=== PATIENT | male | born 1950 | race Caucasian/White ===

== ENCOUNTER → 2017-02-17 | Outpatient (CLI) | payer MEDICARE, BC ==
[~2017-02-17] MED LIST: AMINOPHYLLINE 25 MG/ML, 10ML ONE; ASPI-515 PO; CANA100T PO; DIAZ10TA4 PO; DIPH25CA61 PO; FOLI-17 PO; GABA300C10 PO; GLIM4TAB PO; IPRA0.2S35; MIRT45TA6 PO; NAPR500T3 PO; OXYC-229 PO; REGADENOSON 0.4 MG/5 ML SYRINGE ONE; SITA1TAB5 PO; TRAM50TA2 PO; ZOLP10TA PO; levimer SQ
== END | disposition home or self-care (01) ==
LOC: CFH 12:00
PROVIDERS: ATTEND Internal Medicine Cardiovascular Disease
DX: R55 Syncope and collapse (principal); J44.9 Chronic obstructive pulmonary disease, unspecified
CPT/HCPCS: 78452; 93017; A9502; J0280; J2785

== ENCOUNTER → 2017-03-07 | Outpatient (CLI) | payer MEDICARE, BC ==
[~2017-03-07] MED LIST changes: -AMINOPHYLLINE 25 MG/ML, 10ML ONE; -REGADENOSON 0.4 MG/5 ML SYRINGE ONE
== END | disposition home or self-care (01) ==
LOC: RAD 12:18
PROVIDERS: ATTEND Family Medicine
DX: K76.0 Fatty (change of) liver, not elsewhere classified (principal); N28.1 Cyst of kidney, acquired; N26.1 Atrophy of kidney (terminal); J32.0 Chronic maxillary sinusitis
CPT/HCPCS: 70551; 76700

== ENCOUNTER → 2017-05-27 | Outpatient (CLI) | payer MEDICARE, BC | END | disposition home or self-care (01) | LOC: RAD 13:56 | PROVIDERS: ATTEND Family Medicine | DX: R05 Cough (principal); R63.4 Abnormal weight loss | CPT/HCPCS: 71020 ==

== ENCOUNTER 2017-07-20 15:44 | Inpatient (IN) | payer MEDICARE, BC ==
[~2017-07-20] VITALS: Ht 170.2 cm; Wt 61.1 kg
[~2017-07-20 15:44] MED LIST changes: -IPRA0.2S35; +IPRA0.2S35 INH; -OXYC-229 PO; +OXYC-307 PO
[2017-07-20] MEDS ORDERED: ASPIRIN 81 MG TABLET CHEW PO ONE (16:00)
[2017-07-20] MEDS ORDERED: SODIUM CHLORIDE FLUSH 10ML SYR IVF ONE ×2 (16:00→17:30)
[2017-07-20] MEDS ORDERED: MORPHINE SULFATE 4 MG/ML, 1ML IVPush PRN (16:00)
[2017-07-20] MEDS ORDERED: ONDANSETRON 2MG/ML, 2ML IVPush ONE (16:00)
[2017-07-20] MEDS ORDERED: ONDANSETRON 2MG/ML, 2ML ONE (16:45)
[2017-07-20] MEDS ORDERED: ASPIRIN 81 MG TABLET CHEW ONE (16:46)
[2017-07-20 16:54] LABS: HEMATOCRIT 42.7 % (39.2-51.8); HEMOGLOBIN 13.9 g/dL (13.7-18.0)
[2017-07-20 17:04] LABS: BLOOD UREA NITROGEN 7 mg/dL (7-18)
[2017-07-20] MEDS ORDERED: KETOROLAC 30 MG/1 ML ONE (17:04)
[2017-07-20] MEDS ORDERED: METOCLOPRAMIDE 5 MG/ML, 2ML ONE (17:04)
[2017-07-20] MEDS ORDERED: DIPHENHYDRAMINE 50 MG/ML, 1ML ONE (17:04)
[2017-07-20 17:11] LABS: IS PT STATUS REG ER OR PRE ER? YES
[2017-07-20] MEDS ORDERED: DIPHENHYDRAMINE 50 MG/ML, 1ML IVPush ONE (17:30)
[2017-07-20] MEDS ORDERED: METOCLOPRAMIDE 5 MG/ML, 2ML IVPush ONE (17:30)
[2017-07-20] MEDS ORDERED: SODIUM CHLORIDE 0.9% 1,000ML IVBOLUS ONE (17:30)
[2017-07-20] MEDS ORDERED: KETOROLAC 30 MG/1 ML IVPush ONE (17:30)
[2017-07-20] MEDS ORDERED: HYDROmorphone 2 MG/ML, 1ML IVPush PRN (20:00)
[2017-07-20] MEDS ORDERED: OMNIPAQUE 350 MG/ML, 100ML BOTTLE ONE (20:55)
[2017-07-20] MEDS ORDERED: HYDROmorphone 1 MG/ML, 1ML ONE (21:24)
[2017-07-20] MEDS ORDERED: POLYETHYLENE GLYCOL 17 GM PACKET PO PRN (23:00)
[2017-07-20] MEDS ORDERED: INSULIN DETEMIR 100 UNITS/ML, PEN SQ-INSULIN SCH (23:00)
[2017-07-20] MEDS ORDERED: ZOLPIDEM 10MG TABLET PO SCH (23:00)
[2017-07-20] MEDS ORDERED: ONDANSETRON 2MG/ML, 2ML IVPush PRN (23:00)
[2017-07-20] MEDS ORDERED: MIRTAZAPINE 15 MG TABLET PO SCH (23:00)
[2017-07-20] MEDS ORDERED: OXYcodone/APAP 10/325MG TABLET PO PRN (23:00)
[2017-07-20] MEDS ORDERED: BUTALB/APAP/CAFFEINE 50MG/325MG/40MG PO PRN (23:00)
[2017-07-20] MEDS ORDERED: BISACODYL 10 MG SUPP PR PRN (23:00)
[2017-07-21] MEDS: METHOCARBAMOL 500 MG TABLET PO SCH ×3 (00:11→11:16)
[2017-07-21] MEDS: SODIUM CHLORIDE FLUSH 10ML SYR IVF SCH ×2 (00:12→08:37)
[2017-07-21 02:30] VITALS: BP 101/62
[2017-07-21 04:41] LABS: HEMATOCRIT 39.4 % (39.2-51.8); HEMOGLOBIN 12.9 g/dL (13.7-18.0); WHITE BLOOD COUNT 5.2 x10^3/uL (3.4-10)
[2017-07-21 04:49] LABS: ASPARTATE AMINO TRANSFERASE 8 U/L (15-37); BLOOD UREA NITROGEN 10 mg/dL (7-18)
[2017-07-21] MEDS ORDERED: metFORMIN XR 500 MG TAB.ER.24H PO SCH (08:00)
[2017-07-21 08:30] VITALS: BP 95/60
[2017-07-21] MEDS ORDERED: GABAPENTIN 300 MG CAPSULE PO SCH (09:00)
[2017-07-21] MEDS ORDERED: GLIMEPIRIDE 4 MG TABLET PO SCH (09:00)
[2017-07-21] MEDS ORDERED: CANAGLIFLOZIN HOMEMEDPO SCH (09:00)
[2017-07-21] MEDS ORDERED: SITAGLIPTIN 50MG TABLET PO SCH (09:00)
[2017-07-21] MEDS ORDERED: SENNA/DOCUSATE TABLET PO SCH (09:00)
[2017-07-21] MEDS ORDERED: ASPIRIN 81 MG TABLET EC PO SCH (09:00)
[2017-07-21 14:00] VITALS: BP 101/67
== END 2017-07-21 14:55 | disposition home or self-care (01) | DRG 102 ==
LOC: ED 21:42 → EDIP 21:43 → ED 22:04 → 4NOR 23:38 → DCLOUNGE 07-21 14:42
PROVIDERS: ADMIT Hospitalist; ATTEND Hospitalist
DX: G43.901 Migraine, unspecified, not intractable, with status migrainosus (principal); G93.40 Encephalopathy, unspecified; E11.40 Type 2 diabetes mellitus with diabetic neuropathy, unspecified; F32.9 Major depressive disorder, single episode, unspecified; F41.9 Anxiety disorder, unspecified; E78.5 Hyperlipidemia, unspecified; G89.29 Other chronic pain; M50.30 Other cervical disc degeneration, unspecified cervical region; Z87.891 Personal history of nicotine dependence; Z79.4 Long term (current) use of insulin
CPT/HCPCS: 36415; 70450; 70496; 71020; 80048; 80053; 80061; 82040; 82962; 83036; 83880; 84484; 85025; 87324; 93005; 96374; 96375; J1170; J1885; J2405; Q9967; J1200; J1815; J2765; J7030

== ENCOUNTER 2017-07-27 11:01 | Inpatient (IN) | payer MEDICARE, BC ==
[~2017-07-27] VITALS: Ht 170.2 cm; Wt 65.1 kg
[2017-07-27] MEDS ORDERED: ONDANSETRON ODT 4 MG PO ONE (11:30)
[2017-07-27] MEDS ORDERED: MECLIZINE CHEWABLE 25 MG TAB PO ONE (11:30)
[2017-07-27] MEDS ORDERED: MECLIZINE CHEWABLE 25 MG TAB ONE (11:39)
[2017-07-27] MEDS ORDERED: ONDANSETRON ODT 4 MG ONE (11:39)
[2017-07-27] MEDS ORDERED: LORazepam 2 MG/ML, 1ML ONE (12:06)
[2017-07-27] MEDS ORDERED: SODIUM CHLORIDE 0.9% 1,000 ML IV ONE ×2 (12:06)
[2017-07-27] MEDS ORDERED: ONDANSETRON 2MG/ML, 2ML ONE (12:22)
[2017-07-27 12:30] LABS: HEMATOCRIT 45.4 % (39.2-51.8); HEMOGLOBIN 15.1 g/dL (13.7-18.0); WHITE BLOOD COUNT 11.4 x10^3/uL (3.4-10)
[2017-07-27] MEDS ORDERED: LORazepam 2 MG/ML, 1ML IVPush ONE (12:30)
[2017-07-27] MEDS ORDERED: SODIUM CHLORIDE FLUSH 10ML SYR IVF ONE (12:30)
[2017-07-27 12:40] LABS: ASPARTATE AMINO TRANSFERASE 12 U/L (15-37); BLOOD UREA NITROGEN 11 mg/dL (7-18)
[2017-07-27 12:45] LABS: IS PT STATUS REG ER OR PRE ER? YES
[2017-07-27] MEDS ORDERED: PROMETHAZINE 25 MG/ML, 1ML ONE (12:51)
[2017-07-27] MEDS ORDERED: PROMETHAZINE 25 MG/ML, 1ML IM ONE (13:00)
[2017-07-27] MEDS ORDERED: ONDANSETRON 2MG/ML, 2ML IVPush ONE (13:00)
[2017-07-27] MEDS ORDERED: DIAZEPAM 5 MG/ML, 2ML IV ONE (13:30)
[2017-07-27] MEDS ORDERED: DOCUSATE 100 MG CAPSULE PO PRN (14:00)
[2017-07-27] MEDS ORDERED: ENALAPRILAT 1.25 MG/ML, 2ML IVPush PRN (14:00)
[2017-07-27] MEDS ORDERED: LORazepam 1MG TABLET PO PRN (14:00)
[2017-07-27] MEDS ORDERED: ACETAMINOPHEN 325 MG TABLET PO PRN (14:00)
[2017-07-27] MEDS ORDERED: PROMETHAZINE 25 MG/ML, 1ML IM PRN (14:00)
[2017-07-27] MEDS ORDERED: MECLIZINE CHEWABLE 25 MG TAB PO PRN (14:00)
[2017-07-27] MEDS ORDERED: SODIUM CHLORIDE NASAL SPRAY 45ML BOTTLE NAS PRN (14:00)
[2017-07-27] MEDS ORDERED: ONDANSETRON 2MG/ML, 2ML IVPush PRN (14:00)
[2017-07-27] MEDS ORDERED: BISACODYL 10 MG SUPP PR PRN (14:00)
[2017-07-27] MEDS ORDERED: INSULIN ASPART 100 UNITS/ML, PEN SQ-INSULIN SCH ×2 (15:00→16:00)
[2017-07-27] MEDS ORDERED: DIAZEPAM 5 MG TABLET ONE ×2 (15:34→20:59)
[2017-07-27] MEDS: D5%-0.45NACL+KCL 20MEQ 1,000 ML IV SCH (16:17)
[2017-07-27] MEDS: AMPICILLIN/SULBACTAM 1,500 MG in SODIUM CHLORIDE 0.9% 50 ML IV SCH ×2 (16:17→21:11)
[2017-07-27] MEDS: ENOXAPARIN 40 MG/0.4 ML SQ SCH (16:17)
[2017-07-27 16:20] VITALS: BP 112/61
[2017-07-27] MEDS: DIAZEPAM 10 MG TABLET PO SCH ×2 (16:23→21:00)
[2017-07-27] MEDS: metFORMIN 500 MG TABLET PO SCH (16:40)
[2017-07-27 17:45] LABS: DAU SCREEN DISCLAIMER
[2017-07-27 20:02] VITALS: BP 110/71
[2017-07-27] MEDS ORDERED: MIRTAZAPINE 45 MG PO SCH (21:00)
[2017-07-27] MEDS: ZOLPIDEM 10MG TABLET PO SCH (21:07)
[2017-07-27] MEDS: INSULIN ASPART 100 UNITS/ML, PEN SQ-INSULIN SCH (22:14)
[2017-07-28 01:47] VITALS: BP 102/69
[2017-07-28] MEDS: D5%-0.45NACL+KCL 20MEQ 1,000 ML IV SCH ×2 (02:03→16:36)
[2017-07-28] MEDS: AMPICILLIN/SULBACTAM 1,500 MG in SODIUM CHLORIDE 0.9% 50 ML IV SCH ×4 (03:22→22:38)
[2017-07-28 05:42] LABS: HEMATOCRIT 39.4 % (39.2-51.8); HEMOGLOBIN 13.2 g/dL (13.7-18.0); WHITE BLOOD COUNT 5.9 x10^3/uL (3.4-10)
[2017-07-28 06:12] LABS: BLOOD UREA NITROGEN 11 mg/dL (7-18)
[2017-07-28] MEDS: INSULIN ASPART 100 UNITS/ML, PEN SQ-INSULIN SCH ×4 (07:00→21:00)
[2017-07-28] MEDS: PANTOPRAZOLE 40 MG IV IVPush SCH (07:23)
[2017-07-28] MEDS: metFORMIN 500 MG TABLET PO SCH ×2 (07:26→14:47)
[2017-07-28 07:28] VITALS: BP 96/56
[2017-07-28] MEDS: DIAZEPAM 10 MG TABLET PO SCH ×3 (09:00→21:00)
[2017-07-28] MEDS ORDERED: DIAZEPAM 5 MG TABLET ONE ×3 (09:04→20:52)
[2017-07-28] MEDS: ASPIRIN 81 MG TABLET EC PO SCH (09:14)
[2017-07-28] MEDS: SITAGLIPTIN 50MG TABLET PO SCH (09:14)
[2017-07-28] MEDS: GLIMEPIRIDE 4 MG TABLET PO SCH (09:14)
[2017-07-28] MEDS: GABAPENTIN 300 MG CAPSULE PO SCH (09:14)
[2017-07-28 09:15] VITALS: BP 113/78
[2017-07-28] MEDS ORDERED: GADOBUTROL 7.5 MMOL/7.5 ML PFS ONE (13:05)
[2017-07-28] MEDS: ENOXAPARIN 40 MG/0.4 ML SQ SCH (16:36)
[2017-07-28 16:44] VITALS: BP 113/70
[2017-07-28 19:50] VITALS: BP 104/71
[2017-07-28] MEDS: ZOLPIDEM 10MG TABLET PO SCH (21:00)
[2017-07-28] MEDS: MIRTAZAPINE 15 MG TABLET PO SCH (21:02)
[2017-07-29] MEDS: D5%-0.45NACL+KCL 20MEQ 1,000 ML IV SCH (03:50)
[2017-07-29] MEDS: AMPICILLIN/SULBACTAM 1,500 MG in SODIUM CHLORIDE 0.9% 50 ML IV SCH ×3 (04:40→16:05)
[2017-07-29 04:52] VITALS: BP 106/75
[2017-07-29 07:04] VITALS: BP 106/66
[2017-07-29] MEDS: INSULIN ASPART 100 UNITS/ML, PEN SQ-INSULIN SCH ×4 (07:54→20:53)
[2017-07-29] MEDS: PANTOPRAZOLE 40 MG IV IVPush SCH (07:55)
[2017-07-29] MEDS: metFORMIN 500 MG TABLET PO SCH ×2 (07:55→16:06)
[2017-07-29] MEDS: GABAPENTIN 300 MG CAPSULE PO SCH (07:56)
[2017-07-29] MEDS: SITAGLIPTIN 50MG TABLET PO SCH (07:56)
[2017-07-29] MEDS: ASPIRIN 81 MG TABLET EC PO SCH (07:56)
[2017-07-29] MEDS ORDERED: DIAZEPAM 5 MG TABLET ONE (07:58)
[2017-07-29] MEDS: DIAZEPAM 10 MG TABLET PO SCH (08:00)
[2017-07-29] MEDS: GLIMEPIRIDE 4 MG TABLET PO SCH (08:00)
[2017-07-29 12:05] VITALS: BP 111/71
[2017-07-29] MEDS ORDERED: D5%-0.45NACL+KCL 20MEQ 1,000 ML IV SCH (13:30)
[2017-07-29] MEDS: ENOXAPARIN 40 MG/0.4 ML SQ SCH (16:05)
[2017-07-29 19:51] VITALS: BP 117/79
[2017-07-29] MEDS: MIRTAZAPINE 15 MG TABLET PO SCH (20:52)
== END 2017-07-29 22:05 | disposition left against medical advice (07) | DRG 74 ==
LOC: ED 12:24 → EDIP 13:38 → 3NE 14:36
PROVIDERS: ADMIT Internal Medicine; ATTEND Internal Medicine
DX: E11.40 Type 2 diabetes mellitus with diabetic neuropathy, unspecified (principal); E11.65 Type 2 diabetes mellitus with hyperglycemia; E44.1 Mild protein-calorie malnutrition; R42 Dizziness and giddiness; K31.84 Gastroparesis; E11.43 Type 2 diabetes mellitus with diabetic autonomic (poly)neuropathy; Z53.21 Procedure and treatment not carried out due to patient leaving prior to being seen by health care provider; D72.829 Elevated white blood cell count, unspecified; E78.5 Hyperlipidemia, unspecified; G89.29 Other chronic pain; I65.29 Occlusion and stenosis of unspecified carotid artery; Z79.4 Long term (current) use of insulin; Z79.82 Long term (current) use of aspirin; Z79.899 Other long term (current) drug therapy; Z87.820 Personal history of traumatic brain injury; Z87.891 Personal history of nicotine dependence; Z88.6 Allergy status to analgesic agent; H83.09 Labyrinthitis, unspecified ear; J32.9 Chronic sinusitis, unspecified
CPT/HCPCS: 36415; 70544; 70553; 71010; 80048; 80053; 80307; 81003; 82010; 82140; 82800; 82962; 83735; 84100; 84484; 85025; 93005; 96361; 96372; 96374; 96375; A9585; J1650; J1815; J2405; J2550; J3360; Q0162; C9113; G0479; J0295; J3480; J7030

== ENCOUNTER 2017-07-30 00:42 | Inpatient (IN) | payer MEDICARE, BC ==
[~2017-07-30] VITALS: Ht 170.2 cm; Wt 63.5 kg
[2017-07-30] MEDS ORDERED: SODIUM CHLORIDE FLUSH 10ML SYR IVF ONE (01:30)
[2017-07-30 01:33] LABS: HEMATOCRIT 43.8 % (39.2-51.8); HEMOGLOBIN 14.6 g/dL (13.7-18.0); WHITE BLOOD COUNT 8.3 x10^3/uL (3.4-10)
[2017-07-30 01:36] LABS: BLOOD UREA NITROGEN 11 mg/dL (7-18)
[2017-07-30] MEDS ORDERED: POLYETHYLENE GLYCOL 17 GM PACKET PO PRN (03:00)
[2017-07-30] MEDS ORDERED: ENALAPRILAT 1.25 MG/ML, 2ML IVPush PRN (03:00)
[2017-07-30] MEDS ORDERED: OXYcodone IR 5MG TABLET PO PRN (03:00)
[2017-07-30] MEDS ORDERED: ACETAMINOPHEN 325 MG TABLET PO PRN (03:00)
[2017-07-30] MEDS ORDERED: BISACODYL 10 MG SUPP PR PRN (03:00)
[2017-07-30] MEDS ORDERED: DOCUSATE 100 MG CAPSULE PO PRN (03:00)
[2017-07-30] MEDS ORDERED: hydrALAzine 20 MG/ML, 1ML IVPush PRN (03:00)
[2017-07-30] MEDS ORDERED: morphine SULFATE 10 MG/ML, 1ML IVPush PRN (03:00)
[2017-07-30 03:10] VITALS: BP 123/89
[2017-07-30] MEDS: HEPARIN 5,000 UNITS/ML, 1ML SQ SCH ×3 (03:42→21:32)
[2017-07-30] MEDS: SODIUM CHLORIDE 0.9% 1,000 ML IV SCH ×2 (03:42→12:31)
[2017-07-30] MEDS ORDERED: ALBUTEROL/IPRATROPIUM 2.5MG/0.5MG, 3 ML NPPB PRN (04:00)
[2017-07-30 08:20] VITALS: BP 116/70
[2017-07-30] MEDS ORDERED: DIAZEPAM 5 MG TABLET PO SCH (09:00)
[2017-07-30] MEDS: SITAGLIPTIN 50MG TABLET PO SCH (09:04)
[2017-07-30] MEDS: ASPIRIN 81 MG TABLET EC PO SCH (09:05)
[2017-07-30] MEDS: GABAPENTIN 300 MG CAPSULE PO SCH ×3 (09:05→21:33)
[2017-07-30] MEDS: GLIMEPIRIDE 4 MG TABLET PO SCH (09:05)
[2017-07-30] MEDS: metFORMIN 500 MG TABLET PO SCH (09:05)
[2017-07-30] MEDS ORDERED: SODIUM CHLORIDE NASAL SPRAY 45ML BOTTLE NAS PRN (14:30)
[2017-07-30 15:03] VITALS: BP 104/61
[2017-07-30] MEDS: MECLIZINE CHEWABLE 25 MG TAB PO SCH ×2 (16:45→21:33)
[2017-07-30] MEDS: IBUPROFEN 200 MG TABLET PO PRN (16:45)
[2017-07-30 19:45] VITALS: BP 98/57
[2017-07-30] MEDS: ZOLPIDEM 10MG TABLET PO SCH (21:32)
[2017-07-30] MEDS: AMOXICILLIN/CLAV 875-125MG TABLET PO SCH (21:33)
[2017-07-30] MEDS: INSULIN DETEMIR 100 UNITS/ML, PEN SQ-INSULIN SCH (21:34)
[2017-07-30] MEDS: MIRTAZAPINE 15 MG TABLET PO SCH (21:35)
[2017-07-31 01:57] VITALS: BP 120/80
[2017-07-31] MEDS: HEPARIN 5,000 UNITS/ML, 1ML SQ SCH ×3 (03:15→18:33)
[2017-07-31 05:40] LABS: HEMATOCRIT 44.3 % (39.2-51.8); WHITE BLOOD COUNT 5.1 x10^3/uL (3.4-10)
[2017-07-31 05:55] LABS: ASPARTATE AMINO TRANSFERASE 21 U/L (15-37); BLOOD UREA NITROGEN 13 mg/dL (7-18)
[2017-07-31] MEDS: AMOXICILLIN/CLAV 875-125MG TABLET PO SCH ×2 (10:09→21:57)
[2017-07-31] MEDS: GABAPENTIN 300 MG CAPSULE PO SCH ×3 (10:09→22:24)
[2017-07-31] MEDS: GLIMEPIRIDE 4 MG TABLET PO SCH (10:09)
[2017-07-31] MEDS: ASPIRIN 81 MG TABLET EC PO SCH (10:09)
[2017-07-31] MEDS: SITAGLIPTIN 50MG TABLET PO SCH (10:10)
[2017-07-31] MEDS: MECLIZINE CHEWABLE 25 MG TAB PO SCH ×3 (10:10→21:57)
[2017-07-31] MEDS: metFORMIN 500 MG TABLET PO SCH (10:10)
[2017-07-31 12:34] VITALS: BP 129/88
[2017-07-31] MEDS: OXYcodone/APAP 10/325MG TABLET PO SCH (18:36)
[2017-07-31 20:37] VITALS: BP 95/60
[2017-07-31] MEDS: ZOLPIDEM 10MG TABLET PO SCH (21:57)
[2017-07-31] MEDS: INSULIN DETEMIR 100 UNITS/ML, PEN SQ-INSULIN SCH (21:58)
[2017-07-31] MEDS: MIRTAZAPINE 15 MG TABLET PO SCH (21:58)
[2017-07-31] MEDS: IBUPROFEN 200 MG TABLET PO PRN (22:24)
[2017-08-01 00:58] VITALS: BP 105/71
[2017-08-01] MEDS: HEPARIN 5,000 UNITS/ML, 1ML SQ SCH ×3 (03:04→20:04)
[2017-08-01] MEDS: OXYcodone/APAP 10/325MG TABLET PO SCH (03:04)
[2017-08-01 07:20] VITALS: BP 103/68
[2017-08-01] MEDS: SITAGLIPTIN 50MG TABLET PO SCH (09:07)
[2017-08-01] MEDS: GLIMEPIRIDE 4 MG TABLET PO SCH (09:08)
[2017-08-01] MEDS: ASPIRIN 81 MG TABLET EC PO SCH (09:08)
[2017-08-01] MEDS: AMOXICILLIN/CLAV 875-125MG TABLET PO SCH ×2 (09:08→20:04)
[2017-08-01] MEDS: MECLIZINE CHEWABLE 25 MG TAB PO SCH ×3 (09:08→20:04)
[2017-08-01] MEDS: GABAPENTIN 300 MG CAPSULE PO SCH ×3 (09:08→20:04)
[2017-08-01] MEDS: metFORMIN 500 MG TABLET PO SCH (09:08)
[2017-08-01] MEDS: OXYcodone/APAP 10/325MG TABLET PO PRN ×2 (09:15→16:35)
[2017-08-01 12:01] VITALS: BP 154/90
[2017-08-01] MEDS: ONDANSETRON 2MG/ML, 2ML IVPush PRN (12:45)
[2017-08-01 13:24] LABS: IS PT STATUS REG ER OR PRE ER? NO
[2017-08-01] MEDS ORDERED: LORazepam 0.5MG TABLET PO PRN (13:30)
[2017-08-01] MEDS ORDERED: METOCLOPRAMIDE 5 MG/ML, 2ML IVPush PRN (13:30)
[2017-08-01 13:58] VITALS: BP 146/82
[2017-08-01 18:25] LABS: IS PT STATUS REG ER OR PRE ER? NO
[2017-08-01] MEDS: ZOLPIDEM 10MG TABLET PO SCH (20:04)
[2017-08-01] MEDS: MIRTAZAPINE 15 MG TABLET PO SCH (20:04)
[2017-08-01] MEDS: INSULIN DETEMIR 100 UNITS/ML, PEN SQ-INSULIN SCH (20:05)
[2017-08-01 21:36] VITALS: BP 120/73
[2017-08-02] MEDS: ONDANSETRON 2MG/ML, 2ML IVPush PRN ×2 (01:16→14:30)
[2017-08-02 02:00] VITALS: BP 132/62
[2017-08-02] MEDS: HEPARIN 5,000 UNITS/ML, 1ML SQ SCH ×3 (03:00→19:00)
[2017-08-02 05:01] LABS: HEMATOCRIT 47.1 % (39.2-51.8); HEMOGLOBIN 15.9 g/dL (13.7-18.0); WHITE BLOOD COUNT 6.5 x10^3/uL (3.4-10)
[2017-08-02 05:20] LABS: BLOOD UREA NITROGEN 13 mg/dL (7-18)
[2017-08-02 06:56] VITALS: BP 120/85
[2017-08-02] MEDS: metFORMIN 500 MG TABLET PO SCH (09:23)
[2017-08-02] MEDS: AMOXICILLIN/CLAV 875-125MG TABLET PO SCH ×2 (09:23→21:11)
[2017-08-02] MEDS: ASPIRIN 81 MG TABLET EC PO SCH (09:23)
[2017-08-02] MEDS: SITAGLIPTIN 50MG TABLET PO SCH (09:23)
[2017-08-02] MEDS: GABAPENTIN 300 MG CAPSULE PO SCH ×3 (09:23→21:11)
[2017-08-02] MEDS: GLIMEPIRIDE 4 MG TABLET PO SCH (09:23)
[2017-08-02] MEDS: MECLIZINE CHEWABLE 25 MG TAB PO SCH ×3 (09:23→21:11)
[2017-08-02] MEDS ORDERED: METOCLOPRAMIDE 10MG TABLET PO PRN (11:30)
[2017-08-02 13:41] VITALS: BP 111/71
[2017-08-02] MEDS: OXYcodone/APAP 10/325MG TABLET PO PRN (14:17)
[2017-08-02 19:42] VITALS: BP 125/82
[2017-08-02] MEDS: ZOLPIDEM 10MG TABLET PO SCH (21:00)
[2017-08-02] MEDS: INSULIN DETEMIR 100 UNITS/ML, PEN SQ-INSULIN SCH (21:11)
[2017-08-02] MEDS: MIRTAZAPINE 15 MG TABLET PO SCH (21:11)
[2017-08-03] MEDS: HEPARIN 5,000 UNITS/ML, 1ML SQ SCH ×3 (03:00→18:14)
[2017-08-03 05:17] VITALS: BP 110/75
[2017-08-03 07:12] VITALS: BP 109/48
[2017-08-03] MEDS: SITAGLIPTIN 50MG TABLET PO SCH (09:33)
[2017-08-03] MEDS: ASPIRIN 81 MG TABLET EC PO SCH (09:33)
[2017-08-03] MEDS: MECLIZINE CHEWABLE 25 MG TAB PO SCH ×2 (09:33→17:27)
[2017-08-03] MEDS: metFORMIN 500 MG TABLET PO SCH (09:33)
[2017-08-03] MEDS: AMOXICILLIN/CLAV 875-125MG TABLET PO SCH (09:33)
[2017-08-03] MEDS: GLIMEPIRIDE 4 MG TABLET PO SCH (09:33)
[2017-08-03] MEDS: GABAPENTIN 300 MG CAPSULE PO SCH ×2 (09:33→17:27)
[2017-08-03 10:09] VITALS: BP_SYST 113; BP_SYST 114; BP_SYST 118; BP_DIAS 70; BP_DIAS 72
[2017-08-03] MEDS: ONDANSETRON 2MG/ML, 2ML IVPush PRN (11:05)
[2017-08-03] MEDS ORDERED: BISACODYL 5 MG EC TABLET PO ONE (13:00)
[2017-08-03 14:22] VITALS: BP 111/74
[2017-08-03] MEDS ORDERED: AMOX1TAB12 PO (14:26)
[2017-08-03] MEDS ORDERED: METO10TA2 PO (14:26)
[2017-08-03] MEDS ORDERED: MECL-85 PO (14:26)
== END 2017-08-03 20:21 | DRG 312 ==
LOC: ED 02:06 → EDIP 02:10 → 4WST 03:08
PROVIDERS: ADMIT Internal Medicine; ATTEND Internal Medicine
DX: R55 Syncope and collapse (principal); E11.40 Type 2 diabetes mellitus with diabetic neuropathy, unspecified; F32.9 Major depressive disorder, single episode, unspecified; F41.9 Anxiety disorder, unspecified; G89.29 Other chronic pain; M54.9 Dorsalgia, unspecified; G43.909 Migraine, unspecified, not intractable, without status migrainosus; E78.5 Hyperlipidemia, unspecified; I65.29 Occlusion and stenosis of unspecified carotid artery; R42 Dizziness and giddiness; Z79.4 Long term (current) use of insulin; Z87.891 Personal history of nicotine dependence; Z88.5 Allergy status to narcotic agent; Z91.19 Patient's noncompliance with other medical treatment and regimen; R07.9 Chest pain, unspecified
CPT/HCPCS: 36415; 70450; 80048; 80053; 81003; 82040; 82962; 83036; 83735; 84439; 84443; 84484; 85025; 93005; 93306; 93880; 99285; J1644; J2405; J1815; J2765; J7030

== ENCOUNTER 2018-01-27 15:48 | Inpatient (IN) | payer MEDICARE, BC ==
[~2018-01-27] VITALS: Ht 170.2 cm; Wt 69.9 kg
[~2018-01-27 15:48] MED LIST changes: +AMOX1TAB12 PO; +MECL-85 PO; +METO10TA2 PO; +NAPR-685 PO; -NAPR500T3 PO
[2018-01-27 16:39] LABS: BASOPHILS # (AUTO) 0.03 x10^3/uL (0-0.1); BASOPHILS % (AUTO) 0 % (0-1); EOSINOPHILS # (AUTO) 0.07 x10^3/uL (0-0.4); EOSINOPHILS % (AUTO) 1 % (1-7); LYMPHOCYTES # (AUTO) 1.75 x10^3/uL (1-3.4); LYMPHOCYTES % (AUTO) 20 % (22-44); MD NO; MEAN CORPUSCULAR HEMOGLOBIN 30.2 pg (27.5-34.5); MEAN CORPUSCULAR VOLUME 91.7 fL (81-97); MEAN PLATELET VOLUME 7.3 fL (7.4-10.4); MONOCYTES # (AUTO) 0.48 x10^3/uL (0.2-0.8); MONOCYTES % (AUTO) 6 % (2-9); NEUTROPHILS # (AUTO) 6.21 x10^3/uL (1.8-6.8); NEUTROPHILS % (AUTO) 73 % (42-75); PLATELET COUNT 260 x10^3/uL (130-400); RED BLOOD COUNT 5.28 x10^6/uL (4.38-5.82); RED CELL DISTRIBUTION WIDTH 15.4 % (9.4-14.8)
[2018-01-27 16:50] LABS: ALANINE AMINOTRANSFERASE 23 U/L (12-78); ALBUMIN 3.9 g/dL (3.4-5.0); ANION GAP 4 mmol/L (5-15); CALCIUM 9.7 mg/dL (8.5-10.1); CHLORIDE 106 mmol/L (98-107); CREATININE 1.15 mg/dL (0.7-1.3)
[2018-01-27 16:53] LABS: ALKALINE PHOSPHATASE 80 U/L (45-117); BILIRUBIN,TOTAL 0.3 mg/dL (0.2-1.0); TOTAL PROTEIN 7.7 g/dL (6.4-8.2)
[2018-01-27 17:10] LABS: ACETONE, SERUM Negative (Negative)
[2018-01-27] MEDS ORDERED: SODIUM CHLORIDE 0.9% 1,000 ML IV ONE (17:20)
[2018-01-27] MEDS ORDERED: OMEP-110 PO (17:24)
[2018-01-27] MEDS ORDERED: TRAM50TA2 PO (17:24)
[2018-01-27] MEDS ORDERED: FOLI0.4T2 PO (17:24)
[2018-01-27] MEDS ORDERED: INSU100V8 SQ (17:24)
[2018-01-27] MEDS ORDERED: TIOT18CA INH (17:24)
[2018-01-27] MEDS ORDERED: BUDE10.22 INH (17:24)
[2018-01-27] MEDS ORDERED: PRAV10TA2 PO (17:24)
[2018-01-27] MEDS ORDERED: SERT50TA5 PO (17:24)
[2018-01-27] MEDS ORDERED: SODIUM CHLORIDE FLUSH 10ML SYR IVF ONE (17:30)
[2018-01-27 18:05] LABS: THYROID STIMULATING HORMONE 2.06 mIU/L (0.358-3.740)
[2018-01-27 18:34] VITALS: BP 142/91
[2018-01-27 19:30] VITALS: BP 142/91
[2018-01-27] MEDS ORDERED: ONDANSETRON 2MG/ML, 2ML IVPush PRN (19:30)
[2018-01-27] MEDS: INSULIN GLARGINE 100 UNITS/ML, PEN SQ-INSULIN SCH ×2 (19:30→22:21)
[2018-01-27] MEDS ORDERED: BISACODYL 10 MG SUPP PR PRN (19:30)
[2018-01-27] MEDS ORDERED: POLYETHYLENE GLYCOL 17 GM PACKET PO PRN (19:30)
[2018-01-27] MEDS ORDERED: KETOROLAC 30 MG/1 ML IVPush PRN (19:30)
[2018-01-27] MEDS ORDERED: ACETAMINOPHEN 325 MG TABLET PO PRN (19:30)
[2018-01-27 20:21] LABS: HEMOGLOBIN A1C 8.9 % (4.2-6.3)
[2018-01-27] MEDS: MIRTAZAPINE 15 MG TABLET PO SCH (21:49)
[2018-01-27] MEDS: SODIUM CHLORIDE FLUSH 10ML SYR IVF SCH (21:49)
[2018-01-27] MEDS: GABAPENTIN 300 MG CAPSULE PO SCH (21:49)
[2018-01-27] MEDS: PRAVASTATIN 20 MG TABLET PO SCH (21:49)
[2018-01-27] MEDS: HEPARIN 5,000 UNITS/ML, 1ML SQ SCH (21:49)
[2018-01-27] MEDS: FLUTICASONE/VILANTEROL 100-25MCG/INH INH SCH (22:21)
[2018-01-27 23:06] LABS: MICROSCOPIC NOT IND
[2018-01-27 23:07] LABS: CULTURE INDICATED? NO
[2018-01-27 23:17] LABS: AMPHETAMINE SCREEN, URINE Negative (Negative); BARBITURATE SCREEN, URINE Negative (Negative); BENZODIAZEPINE SCREEN, URINE Positive (Negative); CANNABINOID SCREEN, URINE Positive (Negative); COCAINE SCREEN, URINE Negative (Negative); METHADONE SCREEN, URINE Negative (Negative); OPIATE SCREEN, URINE Negative (Negative)
[2018-01-28 02:56] VITALS: BP 100/68
[2018-01-28 05:02] LABS: BASOPHILS # (AUTO) 0.05 x10^3/uL (0-0.1); BASOPHILS % (AUTO) 1 % (0-1); EOSINOPHILS # (AUTO) 0.17 x10^3/uL (0-0.4); EOSINOPHILS % (AUTO) 2 % (1-7); LYMPHOCYTES # (AUTO) 2.42 x10^3/uL (1-3.4); LYMPHOCYTES % (AUTO) 33 % (22-44); MD NO; MEAN CORPUSCULAR HEMOGLOBIN 30.1 pg (27.5-34.5); MEAN CORPUSCULAR HGB CONC 32.9 g/dL (33.2-36.2); MEAN CORPUSCULAR VOLUME 91.5 fL (81-97); MEAN PLATELET VOLUME 6.9 fL (7.4-10.4); MONOCYTES % (AUTO) 7 % (2-9); NEUTROPHILS # (AUTO) 4.25 x10^3/uL (1.8-6.8); NEUTROPHILS % (AUTO) 58 % (42-75); PLATELET COUNT 219 x10^3/uL (130-400); RED BLOOD COUNT 4.78 x10^6/uL (4.38-5.82); RED CELL DISTRIBUTION WIDTH 14.9 % (9.4-14.8)
[2018-01-28 05:12] LABS: ALBUMIN 3.4 g/dL (3.4-5.0); ANION GAP 4 mmol/L (5-15); CALCIUM 8.5 mg/dL (8.5-10.1); CHLORIDE 108 mmol/L (98-107)
[2018-01-28 05:18] LABS: ALANINE AMINOTRANSFERASE 17 U/L (12-78); ALKALINE PHOSPHATASE 64 U/L (45-117); BILIRUBIN,TOTAL 0.4 mg/dL (0.2-1.0); CREATININE 0.96 mg/dL (0.7-1.3); TOTAL PROTEIN 6.5 g/dL (6.4-8.2)
[2018-01-28] MEDS: HEPARIN 5,000 UNITS/ML, 1ML SQ SCH ×3 (06:12→20:53)
[2018-01-28 06:56] VITALS: BP 124/80
[2018-01-28] MEDS: metFORMIN 500 MG TABLET PO SCH ×2 (09:00→12:50)
[2018-01-28] MEDS: SODIUM CHLORIDE FLUSH 10ML SYR IVF SCH ×2 (09:00→20:52)
[2018-01-28] MEDS ORDERED: IPRATROPIUM 0.5 MG/2.5 ML INHA NPPB SCH ×2 (09:00→21:00)
[2018-01-28] MEDS: CANAGLIFLOZIN PO SCH (09:00)
[2018-01-28] MEDS: SITAGLIPTIN 50MG TABLET PO SCH ×2 (09:00→12:50)
[2018-01-28] MEDS: SODIUM CHLORIDE 0.9% 1,000 ML IV SCH ×2 (09:53→20:52)
[2018-01-28] MEDS: FLUTICASONE/VILANTEROL 100-25MCG/INH INH SCH (09:53)
[2018-01-28] MEDS: SENNA/DOCUSATE TABLET PO SCH (09:54)
[2018-01-28] MEDS: FOLIC ACID 1 MG TABLET PO SCH (09:55)
[2018-01-28] MEDS: SERTRALINE 50MG TABLET PO SCH (09:55)
[2018-01-28] MEDS: ASPIRIN 81 MG TABLET EC PO SCH (09:55)
[2018-01-28] MEDS: GABAPENTIN 300 MG CAPSULE PO SCH ×3 (09:55→20:53)
[2018-01-28 13:10] VITALS: BP 119/71
[2018-01-28] MEDS ORDERED: IPRATROPIUM 0.5 MG/2.5 ML INHA ONE (14:30)
[2018-01-28 16:21] LABS: CLOSTRIDIUM DIFFICILE ANTIGEN NEGATIVE; CLOSTRIDIUM DIFFICILE TOXIN NEGATIVE (Negative)
[2018-01-28 18:57] VITALS: BP 101/59
[2018-01-28] MEDS: PRAVASTATIN 20 MG TABLET PO SCH (20:53)
[2018-01-28] MEDS: MIRTAZAPINE 15 MG TABLET PO SCH (20:53)
[2018-01-28] MEDS: INSULIN GLARGINE 100 UNITS/ML, PEN SQ-INSULIN SCH (20:54)
[2018-01-29 01:04] VITALS: BP 109/59
[2018-01-29] MEDS: HEPARIN 5,000 UNITS/ML, 1ML SQ SCH ×3 (05:00→21:00)
[2018-01-29] MEDS: SODIUM CHLORIDE 0.9% 1,000 ML IV SCH ×2 (05:35→16:15)
[2018-01-29 06:41] VITALS: BP 105/65
[2018-01-29] MEDS: FLUTICASONE/VILANTEROL 100-25MCG/INH INH SCH (08:17)
[2018-01-29] MEDS: GABAPENTIN 300 MG CAPSULE PO SCH ×3 (08:17→21:54)
[2018-01-29] MEDS: SENNA/DOCUSATE TABLET PO SCH (08:17)
[2018-01-29] MEDS: SITAGLIPTIN 50MG TABLET PO SCH (08:17)
[2018-01-29] MEDS: CANAGLIFLOZIN PO SCH (08:17)
[2018-01-29] MEDS: SODIUM CHLORIDE FLUSH 10ML SYR IVF SCH ×2 (08:17→21:55)
[2018-01-29] MEDS: ASPIRIN 81 MG TABLET EC PO SCH (08:18)
[2018-01-29] MEDS: SERTRALINE 50MG TABLET PO SCH (08:18)
[2018-01-29] MEDS: FOLIC ACID 1 MG TABLET PO SCH (08:18)
[2018-01-29] MEDS: metFORMIN 500 MG TABLET PO SCH (08:18)
[2018-01-29] MEDS ORDERED: NITROGLYCERIN SINGLE TAB 0.4 MG SL PRN (10:00)
[2018-01-29 11:47] LABS: TROPONIN I < 0.015 ng/mL (0.000-0.045)
[2018-01-29 13:05] VITALS: BP 148/78
[2018-01-29 16:26] LABS: TROPONIN I < 0.015 ng/mL (0.000-0.045)
[2018-01-29 18:38] VITALS: BP 105/64
[2018-01-29] MEDS: PRAVASTATIN 20 MG TABLET PO SCH (21:53)
[2018-01-29] MEDS: MIRTAZAPINE 15 MG TABLET PO SCH (21:54)
[2018-01-29] MEDS: INSULIN GLARGINE 100 UNITS/ML, PEN SQ-INSULIN SCH (21:55)
[2018-01-30 02:00] VITALS: BP 126/88
[2018-01-30] MEDS: SODIUM CHLORIDE 0.9% 1,000 ML IV SCH (02:38)
[2018-01-30] MEDS: HEPARIN 5,000 UNITS/ML, 1ML SQ SCH ×2 (05:30→14:56)
[2018-01-30 06:55] VITALS: BP 99/63
[2018-01-30] MEDS: SERTRALINE 50MG TABLET PO SCH (08:35)
[2018-01-30] MEDS: SENNA/DOCUSATE TABLET PO SCH (08:35)
[2018-01-30] MEDS: metFORMIN 500 MG TABLET PO SCH (08:35)
[2018-01-30] MEDS: GABAPENTIN 300 MG CAPSULE PO SCH ×2 (08:35→14:55)
[2018-01-30] MEDS: SITAGLIPTIN 50MG TABLET PO SCH (08:35)
[2018-01-30] MEDS: FOLIC ACID 1 MG TABLET PO SCH (08:35)
[2018-01-30] MEDS: SODIUM CHLORIDE FLUSH 10ML SYR IVF SCH (08:37)
[2018-01-30] MEDS: ASPIRIN 81 MG TABLET EC PO SCH (08:37)
[2018-01-30] MEDS: FLUTICASONE/VILANTEROL 100-25MCG/INH INH SCH (08:42)
[2018-01-30] MEDS: CANAGLIFLOZIN PO SCH (08:42)
[2018-01-30] MEDS ORDERED: SODIUM CHLORIDE 0.9% 1,000 ML IV SCH (09:00)
[2018-01-30 09:06] LABS: ALBUMIN 3.5 g/dL (3.4-5.0); ANION GAP 9 mmol/L (5-15); CALCIUM 8.5 mg/dL (8.5-10.1); CHLORIDE 110 mmol/L (98-107)
[2018-01-30 09:09] LABS: ALANINE AMINOTRANSFERASE 19 U/L (12-78); ALKALINE PHOSPHATASE 66 U/L (45-117); BILIRUBIN,TOTAL 0.4 mg/dL (0.2-1.0); CREATININE 1.08 mg/dL (0.7-1.3); TOTAL PROTEIN 6.7 g/dL (6.4-8.2)
[2018-01-30 13:31] VITALS: BP 122/72
[2018-01-30 19:16] VITALS: BP 144/85
== END 2018-01-30 19:50 | disposition home or self-care (01) | DRG 917 ==
LOC: ED 17:21 → EDIP 17:22 → ED 17:28 → 4NOR 18:25
PROVIDERS: ADMIT Hospitalist; ATTEND Hospitalist
DX: T42.71XA Poisoning by unspecified antiepileptic and sedative-hypnotic drugs, accidental (unintentional), initial encounter (principal); G93.41 Metabolic encephalopathy; E11.40 Type 2 diabetes mellitus with diabetic neuropathy, unspecified; J44.9 Chronic obstructive pulmonary disease, unspecified; E78.5 Hyperlipidemia, unspecified; F32.9 Major depressive disorder, single episode, unspecified; F41.1 Generalized anxiety disorder; I10 Essential (primary) hypertension; Z79.4 Long term (current) use of insulin; Z87.891 Personal history of nicotine dependence; Z88.6 Allergy status to analgesic agent; Y92.89 Other specified places as the place of occurrence of the external cause
CPT/HCPCS: 36415; 70450; 71045; 80053; 80307; 81003; 82010; 82140; 82607; 82800; 82962; 83036; 83690; 83735; 84100; 84443; 84484; 85025; 87324; 93005; 94640; 96360; J1644; J1885; J7644; J1815; J7030

== ENCOUNTER → 2018-05-05 | Outpatient (CLI) | payer MEDICARE, BC ==
[~2018-05-05] MED LIST changes: +BUDE10.22 INH; +FOLI0.4T2 PO; +INSU100V8 SQ; +OMEP-110 PO; +PRAV10TA2 PO; +SERT50TA5 PO; +TIOT18CA INH
== END | disposition home or self-care (01) ==
LOC: RAD 14:54
PROVIDERS: ATTEND Nurse Practitioner
DX: M51.36 Other intervertebral disc degeneration, lumbar region (principal); M48.061 Spinal stenosis, lumbar region without neurogenic claudication
CPT/HCPCS: 72050; 72114; 72141; 72148

== ENCOUNTER 2018-06-02 10:04 | Emergency (ER) | payer MEDICARE, BC ==
[~2018-06-02] VITALS: Ht 170.2 cm; Wt 70.0 kg
[2018-06-02] MEDS ORDERED: ONDANSETRON 2MG/ML, 2ML ONE (10:22)
[2018-06-02] MEDS ORDERED: DIPHENHYDRAMINE 50 MG/ML, 1ML ONE (10:22)
[2018-06-02] MEDS ORDERED: METOCLOPRAMIDE 5 MG/ML, 2ML ONE (10:22)
[2018-06-02 10:39] LABS: BASOPHILS # (AUTO) 0.02 x10^3/uL (0-0.1); BASOPHILS % (AUTO) 0 % (0-1); EOSINOPHILS # (AUTO) 0.07 x10^3/uL (0-0.4); EOSINOPHILS % (AUTO) 1 % (1-7); LYMPHOCYTES # (AUTO) 1.61 x10^3/uL (1-3.4); LYMPHOCYTES % (AUTO) 15 % (22-44); MD NO; MEAN CORPUSCULAR HEMOGLOBIN 30.1 pg (27.5-34.5); MEAN CORPUSCULAR HGB CONC 33.2 g/dL (33.2-36.2); MEAN CORPUSCULAR VOLUME 90.6 fL (81-97); MEAN PLATELET VOLUME 8.3 fL (7.4-10.4); MONOCYTES # (AUTO) 0.46 x10^3/uL (0.2-0.8); MONOCYTES % (AUTO) 4 % (2-9); NEUTROPHILS # (AUTO) 8.69 x10^3/uL (1.8-6.8); NEUTROPHILS % (AUTO) 80 % (42-75); PLATELET COUNT 274 x10^3/uL (130-400); RED BLOOD COUNT 5.42 x10^6/uL (4.38-5.82); RED CELL DISTRIBUTION WIDTH 15.7 % (9.4-14.8)
[2018-06-02 10:40] LABS: PH, VENOUS 7.411 pH (7.320-7.420)
[2018-06-02 10:42] LABS: O2 FLOW ROOM AIR L/min
[2018-06-02 10:51] LABS: ALANINE AMINOTRANSFERASE 22 U/L (12-78); ANION GAP 10 mmol/L (5-15); CALCIUM 9.7 mg/dL (8.5-10.1); CHLORIDE 104 mmol/L (98-107); CREATININE 1.27 mg/dL (0.7-1.3)
[2018-06-02 10:54] LABS: ALKALINE PHOSPHATASE 89 U/L (45-117); BILIRUBIN,TOTAL 0.5 mg/dL (0.2-1.0); TOTAL PROTEIN 7.9 g/dL (6.4-8.2)
[2018-06-02] MEDS ORDERED: ONDANSETRON 2MG/ML, 2ML IVPush ONE (11:00)
[2018-06-02] MEDS ORDERED: SODIUM CHLORIDE 0.9% 1,000ML IVBOLUS ONE (11:00)
[2018-06-02] MEDS ORDERED: DIPHENHYDRAMINE 50 MG/ML, 1ML IVPush ONE (11:00)
[2018-06-02] MEDS ORDERED: METOCLOPRAMIDE 5 MG/ML, 2ML IVPush ONE (11:00)
[2018-06-02 11:53] LABS: ACETONE, SERUM Moderate(40mg/dL) mg/dL (Negative)
[2018-06-02 12:26] LABS: MICROSCOPIC NOT IND
[2018-06-02 12:36] VITALS: BP 111/67
[2018-06-02 12:38] LABS: CULTURE INDICATED? NO
[2018-06-02] MEDS ORDERED: ONDANSETRON ODT 8 MG ONE (12:50)
[2018-06-02] MEDS ORDERED: ONDANSETRON ODT 8 MG PO ONE (13:00)
== END 2018-06-02 13:11 | disposition home or self-care (01) ==
LOC: ED 13:08
DX: E11.65 Type 2 diabetes mellitus with hyperglycemia (principal); R11.2 Nausea with vomiting, unspecified; J44.9 Chronic obstructive pulmonary disease, unspecified; I10 Essential (primary) hypertension; Z87.891 Personal history of nicotine dependence
CPT/HCPCS: 36415; 70450; 71045; 80053; 81003; 82010; 82803; 83690; 85025; 93005; 96361; 96374; 96375; 99285; J1200; J2405; J2765; J7030; Q0162; 96372

== ENCOUNTER 2019-04-11 10:10 | Outpatient (CLI) | payer MEDICARE, BC ==
[~2019-04-11 10:10] MED LIST changes: +MIRT45TA57 PO; -MIRT45TA6 PO; +SERT50TA28 PO; -SERT50TA5 PO
== END 2019-04-11 23:59 | disposition home or self-care (01) ==
LOC: CVU 10:10
PROVIDERS: ATTEND Surgery
DX: I65.22 Occlusion and stenosis of left carotid artery (principal)
CPT/HCPCS: 93880

== ENCOUNTER → 2019-05-25 | Outpatient (CLI) | payer MEDICARE, BC | END | disposition home or self-care (01) | LOC: CFH 12:23 | PROVIDERS: ATTEND Physician Assistant | DX: Z12.2 Encounter for screening for malignant neoplasm of respiratory organs (principal); I70.90 Unspecified atherosclerosis; F17.201 Nicotine dependence, unspecified, in remission | CPT/HCPCS: G0297 ==

== ENCOUNTER → 2019-05-28 | Outpatient (CLI) | payer MEDICARE, BC | END | disposition home or self-care (01) | LOC: CFH 10:56 | PROVIDERS: ATTEND Physician Assistant | DX: Z13.6 Encounter for screening for cardiovascular disorders (principal); F17.201 Nicotine dependence, unspecified, in remission | CPT/HCPCS: 76706 ==

== ENCOUNTER 2021-07-01 15:16 | Emergency (ER) | payer MEDICARE, BC ==
[~2021-07-01] VITALS: Ht 167.6 cm; Wt 57.3 kg
[~2021-07-01 15:16] MED LIST changes: -ASPI-515 PO; +ASPI-963 PO; -FOLI-17 PO; -FOLI0.4T2 PO; +FOLI0.4T5 PO; +FOLI1TAB32 PO; -OXYC-307 PO; +OXYC-380 PO
--- NOTE | 2021-07-01 15:43 | NUR ---
Patient BIBA c/o right shoulder pain, non-radiating. Patient has a hx of chronic pain but usually in the low back. Pain was "bad last night and kept waking me up." [employer] admin a total of 200mcg Fentanyl, 2mg Versed, and 4mg Zofran. Patient's pain improved from a 10/10 to a 5/10. Patient was seen by urgent care for same and sent to ER for further eval. Patient is in NAD while resting. Respirations even and unlabored.
[2021-07-01] MEDS ORDERED: SODIUM CHLORIDE FLUSH 10ML SYR IVF ONE (16:00)
[2021-07-01] MEDS ORDERED: DIAZEPAM 5 MG/ML, 2ML IVPush ONE (16:00)
[2021-07-01] MEDS ORDERED: DIAZEPAM 5 MG/ML, 2ML ONE (16:10)
--- NOTE | 2021-07-01 16:22 | NUR ---
Medicated patient per mar. Patient to CT.
--- NOTE | 2021-07-01 16:39 | NUR ---
Yissel Rhodes -daughter [phone] Call for ride.
[2021-07-01 16:53] LABS: BASOPHILS % (AUTO) 1 % (0-1); EOSINOPHILS % (AUTO) 1 % (1-7); LYMPHOCYTES % (AUTO) 28 % (22-44); MEAN CORPUSCULAR HEMOGLOBIN 30.4 pg (27.5-34.5); MEAN CORPUSCULAR HGB CONC 33.3 g/dL (33.2-36.2); MEAN PLATELET VOLUME 7.3 fL (7.4-10.4); MONOCYTES % (AUTO) 7 % (2-9); NEUTROPHILS % (AUTO) 63 % (42-75); PLATELET COUNT 232 x10^3/uL (130-400); RED BLOOD COUNT 4.62 x10^6/uL (4.38-5.82); RED CELL DISTRIBUTION WIDTH 15.1 % (9.4-14.8)
[2021-07-01] MEDS ORDERED: HYDROmorphone 2 MG/ML, 1ML ONE (16:57)
[2021-07-01 16:59] LABS: ALANINE AMINOTRANSFERASE 19 U/L (12-78); ALBUMIN 3.6 g/dL (3.4-5.0); ANION GAP 6 mmol/L (5-15); CALCIUM 8.8 mg/dL (8.5-10.1); CHLORIDE 107 mmol/L (98-107); CREATININE 0.99 mg/dL (0.7-1.3)
[2021-07-01] MEDS ORDERED: HYDROmorphone 2 MG/ML, 1ML IVPush ONE (17:00)
[2021-07-01 17:01] LABS: ALKALINE PHOSPHATASE 64 U/L (45-117); BILIRUBIN,TOTAL 0.3 mg/dL (0.2-1.0); TOTAL PROTEIN 7.2 g/dL (6.4-8.2)
[2021-07-01 17:02] VITALS: BP 116/80
[2021-07-01] MEDS ORDERED: KETOROLAC 30 MG/1 ML ONE (17:16)
[2021-07-01] MEDS ORDERED: KETOROLAC 30 MG/1 ML IVPush ONE (17:30)
[2021-07-01] MEDS ORDERED: ONDANSETRON ODT 4 MG ONE (18:33)
--- NOTE | 2021-07-01 18:40 | NUR ---
Discharge instructions given. All questions and concerns addressed. Patient ambulatory with a steady gait. Belongings with patient.
[2021-07-01] MEDS ORDERED: ONDANSETRON ODT 4 MG PO ONE (19:00)
== END 2021-07-01 18:41 | disposition home or self-care (01) ==
LOC: ED 18:30
DX: M47.814 Spondylosis without myelopathy or radiculopathy, thoracic region (principal); R41.0 Disorientation, unspecified; R07.89 Other chest pain; I10 Essential (primary) hypertension; E11.65 Type 2 diabetes mellitus with hyperglycemia; J44.9 Chronic obstructive pulmonary disease, unspecified; Z90.89 Acquired absence of other organs; Z88.6 Allergy status to analgesic agent; Z87.891 Personal history of nicotine dependence
CPT/HCPCS: 36415; 70450; 71045; 72128; 80053; 85025; 96374; 96375; 99285; J1170; J1885; J3360